=== PATIENT | female | born 1995 | race Caucasian/White ===

== ENCOUNTER 2021-05-04 23:58 | Inpatient (IN) | payer MEDICAID ==
[~2021-05-04] VITALS: Ht 165.1 cm; Wt 104.5 kg
[2021-05-05 01:00] VITALS: BP_SYST 134
[2021-05-05] MEDS ORDERED: FENTANYL PF 100 MCG/2ML ONE ×2 (01:15→10:03)
[2021-05-05] MEDS ORDERED: OXYTOCIN 30U/ 0.9% NaCL 500ML 500 ML ONE (01:17)
[2021-05-05] MEDS: LACTATED RINGERS 1,000 ML IV SCH ×6 (01:30→19:30)
[2021-05-05] MEDS: FENTANYL PF 100 MCG/2ML IVPush PRN ×3 (01:35→08:04)
[2021-05-05] MEDS ORDERED: ONDANSETRON 2MG/ML, 2ML IVPush PRN ×2 (02:00→10:00)
[2021-05-05] MEDS ORDERED: OXYTOCIN 30U/ 0.9% NaCL 500ML 500 ML IV PRN (02:00)
[2021-05-05] MEDS ORDERED: TERBUTALINE 1 MG/ML, 1ML SQ PRN (02:00)
[2021-05-05] MEDS ORDERED: OXYTOCIN 30U/ 0.9% NaCL 500ML 500 ML IV ONE (02:00)
[2021-05-05] MEDS ORDERED: FENTANYL PF 100 MCG/2ML IV PRN ×2 (02:00→10:00)
[2021-05-05] MEDS ORDERED: TERBUTALINE 1 MG/ML, 1ML IVPush PRN (02:00)
[2021-05-05] MEDS ORDERED: D5%-LACTATED RINGERS 1,000 ML IV SCH (02:00)
[2021-05-05 02:08] LABS: MEAN CORPUSCULAR HEMOGLOBIN 30.4 pg (27.0-34.8); MEAN CORPUSCULAR HGB CONC 33.6 g/dL (32.4-35.8); MEAN PLATELET VOLUME 8.1 fL (7.4-10.4); PLATELET COUNT 218 x10^3/uL (130-400); RED BLOOD COUNT 3.94 x10^6/uL (3.82-5.3); RED CELL DISTRIBUTION WIDTH 14.3 % (9.6-15.2)
[2021-05-05] MEDS ORDERED: PLEASE ENTER HEIGHT AND WEIGHT MC SCH (02:30)
[2021-05-05 02:39] LABS: <PLATELET ESTIMATE> ADEQUATE; <PLT MORPHOLOGY> NORMAL PLT MORPH; <RBC MORPHOLOGY> NORMAL; BAND#(MANUAL) 0.71 x10^3/uL; BANDS%(MANUAL) 5 % (0-7); EOS#(MANUAL) 0.42 x10^3/uL (0.0-0.4); EOS% (MANUAL) 3 % (1-7); LYMPH#(MANUAL) 1.69 x10^3/uL (1-3.4); LYMPHS% (MANUAL) 12 % (22-44); MONOS#(MANUAL) 1.41 x10^3/uL (0.3-2.7); MONOS% (MANUAL) 10 % (2-9); SEG#(MANUAL) 9.87 x10^3/uL (1.8-6.8); SEGS% (MANUAL) 70 % (42-75)
[2021-05-05 02:40] LABS: PMNS WITH VACUOLES 1+
[2021-05-05] MEDS ORDERED: NEWBORN KIT ONE (09:01)
[2021-05-05] MEDS ORDERED: SODIUM CITRATE/CITRIC ACID 15 ML UDC ONE (09:01)
[2021-05-05] MEDS ORDERED: METOCLOPRAMIDE 5 MG/ML, 2ML ONE (09:01)
[2021-05-05] MEDS ORDERED: METHYLERGONOVINE 0.2 MG/ML IM PRN (09:30)
[2021-05-05] MEDS ORDERED: MISOPROSTOL 200 MCG TABLET PR PRN (09:30)
[2021-05-05] MEDS ORDERED: OXYcodone/APAP 5/325MG TABLET PO PRN (09:30)
[2021-05-05] MEDS ORDERED: ONDANSETRON 2MG/ML, 2ML IV PRN (09:30)
[2021-05-05] MEDS ORDERED: BISACODYL 10 MG SUPP PR PRN (09:30)
[2021-05-05] MEDS ORDERED: LABETALOL 5MG/ML, 20ML IV PRN (10:00)
[2021-05-05] MEDS ORDERED: hydrALAzine 20 MG/ML, 1ML IV PRN (10:00)
[2021-05-05] MEDS ORDERED: OXYcodone 5 MG/5 ML ORAL.SOL UDC PO PRN (10:00)
[2021-05-05] MEDS ORDERED: METOPROLOL 1 MG/ML, 5ML IV PRN (10:00)
[2021-05-05] MEDS ORDERED: HYDROmorphone 2 MG/ML, 1ML IVPush PRN (10:00)
[2021-05-05] MEDS ORDERED: PROMETHAZINE 25 MG/ML, 1ML IV PRN (10:00)
[2021-05-05] MEDS ORDERED: EPHEDRINE 50 MG/ML, 1ML IVPush PRN (10:00)
[2021-05-05] MEDS ORDERED: ALBUTEROL SULFATE 2.5 MG/3 ML NPPB PRN (10:00)
[2021-05-05] MEDS ORDERED: HYDROcodone/APAP 7.5-325MG/15ML UDC PO PRN (10:00)
[2021-05-05] MEDS ORDERED: MEPERIDINE/PF 25MG/0.5ML IVPush PRN (10:00)
[2021-05-05] MEDS ORDERED: DEXAMETHASONE 4 MG/ML, 1ML ONE (10:03)
[2021-05-05] MEDS ORDERED: EPHEDRINE 50 MG/ML, 1ML ONE (10:03)
[2021-05-05] MEDS ORDERED: OXYTOCIN 10 UNITS/ML, 1ML ONE (10:03)
[2021-05-05] MEDS ORDERED: KETOROLAC 30 MG/1 ML ONE ×2 (10:03→15:00)
[2021-05-05] MEDS ORDERED: ONDANSETRON 2MG/ML, 2ML ONE (10:03)
[2021-05-05] MEDS ORDERED: PHENYLEPHRINE 10 MG/ML ONE (10:03)
[2021-05-05] MEDS ORDERED: CEFAZOLIN 1,000 MG ONE (10:03)
[2021-05-05] MEDS ORDERED: HYDROmorphone 2 MG/ML, 1ML ONE (10:05)
[2021-05-05] MEDS ORDERED: MEPERIDINE/PF 50 MG/ML ONE (11:53)
[2021-05-05] MEDS: OXYTOCIN 30U/ 0.9% NaCL 500ML 500 ML IV SCH ×2 (11:59→19:30)
[2021-05-05] MEDS ORDERED: SODIUM CITRATE/CITRIC ACID 30 ML UDC PO ONE (13:30)
[2021-05-05] MEDS ORDERED: METOCLOPRAMIDE 5 MG/ML, 2ML IV ONE (13:30)
[2021-05-05 14:28] VITALS: BP 146/80
[2021-05-05] MEDS: KETOROLAC 30 MG/1 ML IVPush SCH ×2 (15:05→21:00)
[2021-05-05] MEDS: OXYcodone/APAP 5/325MG TABLET PO PRN ×2 (18:11→23:02)
[2021-05-05 18:22] LABS: BASOPHILS % (AUTO) 0 % (0-1); EOSINOPHILS % (AUTO) 0 % (1-7); LYMPHOCYTES % (AUTO) 9 % (22-44); MEAN CORPUSCULAR HEMOGLOBIN 30.5 pg (27.0-34.8); MEAN CORPUSCULAR HGB CONC 33.5 g/dL (32.4-35.8); MEAN PLATELET VOLUME 8.3 fL (7.4-10.4); MONOCYTES % (AUTO) 4 % (2-9); NEUTROPHILS % (AUTO) 87 % (42-75); PLATELET COUNT 187 x10^3/uL (130-400); RED BLOOD COUNT 3.64 x10^6/uL (3.82-5.3); RED CELL DISTRIBUTION WIDTH 14.5 % (9.6-15.2)
[2021-05-05 21:00] VITALS: BP 118/78
[2021-05-06 01:00] VITALS: BP 135/73
[2021-05-06] MEDS: LACTATED RINGERS 1,000 ML IV SCH ×5 (01:30→17:30)
[2021-05-06] MEDS: OXYcodone/APAP 5/325MG TABLET PO PRN ×2 (03:18→10:11)
[2021-05-06] MEDS: KETOROLAC 30 MG/1 ML IVPush SCH ×3 (03:18→15:30)
[2021-05-06 04:30] VITALS: BP 117/73
[2021-05-06] MEDS: OXYTOCIN 30U/ 0.9% NaCL 500ML 500 ML IV SCH ×2 (05:30→15:30)
[2021-05-06] MEDS ORDERED: HYDROcodone/APAP 10/325 MG TABLET PO PRN (08:00)
[2021-05-06 08:20] VITALS: BP 131/80
[2021-05-06] MEDS: PRENATAL VIT/IRON/FA 1 EACH TABLET PO SCH (10:10)
[2021-05-06] MEDS: SIMETHICONE 80 MG CHEW TAB PO PRN ×2 (10:10→19:53)
[2021-05-06] MEDS: DOCUSATE 100 MG CAPSULE PO PRN ×2 (10:10→19:53)
[2021-05-06 19:45] VITALS: BP 142/81
[2021-05-06] MEDS: OXYcodone IR 5MG TABLET PO PRN (19:52)
[2021-05-06] MEDS: ACETAMINOPHEN 325 MG TABLET PO PRN (19:53)
[2021-05-06 20:20] VITALS: BP 138/83
[2021-05-06] MEDS: IBUPROFEN 600 MG TABLET PO PRN (21:26)
[2021-05-07] MEDS: OXYcodone IR 5MG TABLET PO PRN ×3 (00:29→08:17)
[2021-05-07] MEDS: ACETAMINOPHEN 325 MG TABLET PO PRN ×3 (00:30→08:17)
[2021-05-07] MEDS: LACTATED RINGERS 1,000 ML IV SCH ×4 (01:30→11:30)
[2021-05-07] MEDS: OXYTOCIN 30U/ 0.9% NaCL 500ML 500 ML IV SCH ×2 (01:30→11:30)
[2021-05-07] MEDS: SIMETHICONE 80 MG CHEW TAB PO PRN (03:37)
[2021-05-07] MEDS: IBUPROFEN 600 MG TABLET PO PRN (03:37)
[2021-05-07 07:30] VITALS: BP 120/80
[2021-05-07] MEDS: PRENATAL VIT/IRON/FA 1 EACH TABLET PO SCH (08:17)
[2021-05-07] MEDS: DOCUSATE 100 MG CAPSULE PO PRN (08:17)
[2021-05-07] MEDS ORDERED: IBUP-1222 PO (08:31)
[2021-05-07] MEDS ORDERED: ACET325T26 PO (08:31)
[2021-05-07] MEDS ORDERED: DOCU-131 PO (08:31)
[2021-05-07] MEDS ORDERED: HYDR1TAB53 PO (08:31)
[2021-05-07] MEDS ORDERED: SIME80TA16 PO (08:31)
== END 2021-05-07 12:00 | disposition home or self-care (01) | DRG 540 ==
LOC: LDOP 23:58 → LDIP 05-05 01:00 → 2NW 05-05 14:10
PROVIDERS: ADMIT Obstetrics & Gynecology; ATTEND Obstetrics & Gynecology
PROC: 10D00Z1 Extraction of Products of Conception, Low, Open Approach (ICD-10-PCS; principal; 2021-05-05)
DX: O32.1XX0 Maternal care for breech presentation, not applicable or unspecified (principal); O13.4 Gestational [pregnancy-induced] hypertension without significant proteinuria, complicating childbirth; Z20.822 Contact with and (suspected) exposure to COVID-19; Z37.0 Single live birth; Z3A.39 39 weeks gestation of pregnancy
CPT/HCPCS: 36415; 85025; 86592; 86850; 86900; 87635; G0378; J0690; J1100; J1170; J1885; J2175; J2405; J3010; J2370; J2590; J2765; J7120